=== PATIENT | male | born 1945 | race Caucasian/White ===

== ENCOUNTER 2022-10-15 22:34 | Emergency (ER) | payer SELFPAY ==
[~2022-10-15] VITALS: Ht 170.2 cm; Wt 100.8 kg
[2022-10-15 23:00] VITALS: BP 145/87
--- NOTE | 2022-10-15 23:05 | NUR ---
TO LOBBY A/W BED AMBULATORY
--- NOTE | 2022-10-15 23:58 | NUR ---
PT TO BED #10
--- NOTE | 2022-10-15 23:59 | NUR ---
RECEIVED IN BED 10 FROM [employer]
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
--- NOTE | 2022-10-16 00:10 | NUR ---
DR POST AT BEDSIDE FOR EXAM
[2022-10-16] MEDS ORDERED: HYDROcodone/APAP 5/325 MG 1 TAB TAB PO ONE (00:30)
--- NOTE | 2022-10-16 00:35 | NUR ---
TO CT VIA W/C
--- NOTE | 2022-10-16 00:50 | NUR ---
RETURNED FROM CT, MEDICATED ORDERED
[2022-10-16] MEDS ORDERED: NAPR-1704 PO (02:43)
[2022-10-16 03:05] VITALS: BP 145/87
--- NOTE | 2022-10-16 03:05 | NUR ---
Patient discharged with v/s stable. Written and verbal after care instructions given and explained. Patient verbalized understanding. Ambulatory with steady gait. All questions addressed prior to discharge. Advised to follow up with PMD.
== END 2022-10-16 03:05 | disposition home or self-care (01) ==
LOC: MED 22:34 → EDSEX 22:34 → MED 10-16 03:05
DX: S16.1XXA Strain of muscle, fascia and tendon at neck level, initial encounter (principal); M25.512 Pain in left shoulder; I10 Essential (primary) hypertension; Z79.899 Other long term (current) drug therapy; Z90.49 Acquired absence of other specified parts of digestive tract; V49.88XA Car occupant (driver) (passenger) injured in other specified transport accidents, initial encounter; Y93.89 Activity, other specified; Y92.89 Other specified places as the place of occurrence of the external cause; Y99.8 Other external cause status
CPT/HCPCS: 70450; 71045; 72125; 99284